=== PATIENT | male | born 1945 | race Caucasian/White ===

== ENCOUNTER 2017-12-08 09:17 | Emergency (ER) | payer OTHER, MEDICARE ==
--- NOTE | 2017-12-08 10:03 | ER Document Report ---
ED Medical Screen (RME) - General Chief Complaint: Puncture Wound to Foot Stated Complaint: FOOT PAIN Time Seen by Provider: 12/08/17 09:53 Mode of Arrival: Ambulatory Information source: Patient TRAVEL OUTSIDE OF THE [place] IN LAST 30 DAYS: No - HPI Patient complains to provider of: foot pain Onset: Other - pt. states he stepped on a nail (L foot) 1 month ago and had Tet. and was placed on Abx. Area getting morre red and painful despite neg. X- ray - Related Data Allergies/Adverse Reactions: No Known Allergies Allergy (Verified 12/08/17 09:18) Past Medical History - Social History Chew tobacco use (# tins/day): No Frequency of alcohol use: Rare Drug Abuse: None Renal/ Medical History: Denies: Hx Peritoneal Dialysis Physical Exam - Vital signs Vitals: Temp Pulse Resp BP Pulse Ox 97.4 F 58 L 18 140/61 H 98 12/08/17 09:28 12/08/17 09:28 12/08/17 09:28 12/08/17 09:28 12/08/17 09:28 Course - Vital Signs Vital signs: Temp Pulse Resp BP Pulse Ox 97.4 F 58 L 18 140/61 H 98 12/08/17 09:28 12/08/17 09:28 12/08/17 09:28 12/08/17 09:28 12/08/17 09:28
[2017-12-08 10:14] LABS: ABSOLUTE EOSINOPHILS # (AUTO) 0.1 10^3/uL (0.0-0.6); ABSOLUTE LYMPHOCYTES (AUTO) 2.9 10^3/uL (0.5-4.7); ABSOLUTE MONOCYTES (AUTO) 0.6 10^3/uL (0.1-1.4); BASOPHILS % (AUTO) 0.5 % (0-2); EOSINOPHILS % (AUTO) 0.9 % (0-6); HEMATOCRIT 42.4 % (37.9-51.0); HEMOGLOBIN 14.5 g/dL (13.5-17.0); LYMPHOCYTES % (AUTO) 34.1 % (13-45); MEAN CORPUSCULAR HEMOGLOBIN 31.3 pg (27.0-33.4); MEAN CORPUSCULAR HGB CONC 34.1 g/dL (32.0-36.0); MEAN CORPUSCULAR VOLUME 92 fl (80-97); MONOCYTES % (AUTO) 6.5 % (3-13); PLATELET COUNT 137 10^3/uL (150-450); RED BLOOD COUNT 4.61 10^6/uL (4.35-5.55); RED CELL DISTRIBUTION WIDTH 14.4 % (11.5-14.0); TOTAL CELLS COUNTED % (AUTO) 100 %; WHITE BLOOD COUNT 8.6 10^3/uL (4.0-10.5)
[2017-12-08 10:32] LABS: ALANINE AMINOTRANSFERASE 22 U/L (21-72); ALBUMIN 4.2 g/dL (3.5-5.0); ALKALINE PHOSPHATASE 101 U/L (38-126); ANION GAP 11 (5-19); ASPARTATE AMINO TRANSFERASE 23 U/L (17-59); BILIRUBIN,DIRECT 0.3 mg/dL (0.0-0.4); BILIRUBIN,TOTAL 0.7 mg/dL (0.2-1.3); BLOOD UREA NITROGEN 17 mg/dL (7-20); CALCIUM 9.5 mg/dL (8.4-10.2); CARBON DIOXIDE 32 mmol/L (22-30); CHLORIDE 103 mmol/L (98-107); GLUCOSE 104 mg/dL (75-110); POTASSIUM 4.4 mmol/L (3.6-5.0); SODIUM 145.7 mmol/L (137-145); TOTAL PROTEIN 7.2 g/dL (6.3-8.2)
[2017-12-08] MEDS ORDERED: LIDOCAINE 1% INJ-PF (10 MG/ML) 30 ML SDV INJ ONE (11:36)
--- NOTE | 2017-12-08 11:38 | ER Document Report ---
ED Extremity Problem, Lower - General Mode of Arrival: Ambulatory Information source: Patient TRAVEL OUTSIDE OF THE [place] IN LAST 30 DAYS: No <SERENITY HERNANDEZ - Last Filed: 12/08/17 16:25> <KENN NAYAK - Last Filed: 12/08/17 16:28> - General Chief Complaint: Puncture Wound to Foot Stated Complaint: FOOT PAIN Time Seen by Provider: 12/08/17 09:53 Notes: Patient is a 72-year-old male that presents to the emergency department today with complaints of a possible infection to his left foot. Patient states he stepped on a nail about a month ago. Patient states he was treated with Cipro by his doctor and he did not think anything of it after that. Patient states he was recently seen by his doctor again in follow-up and his doctor said that "it should not look like that". Patient states he noticed increasing redness and swelling about 1 week ago and [facility] which revealed no foreign body or fracture. Patient states he has been soaking his foot in epsom salt multiple times a day for the last few days. ( SERENITY HERNANDEZ) - Related Data Allergies/Adverse Reactions: No Known Allergies Allergy (Verified 12/08/17 09:18) Past Medical History - General Information source: Patient - Social History Smoking Status: Never Smoker Cigarette use (# per day): No Chew tobacco use (# tins/day): No Frequency of alcohol use: Rare Drug Abuse: None Lives with: Family Family History: Reviewed & Not Pertinent Patient has suicidal ideation: No Patient has homicidal ideation: No Renal/ Medical History: Denies: Hx Peritoneal Dialysis Surgical Hx: Negative <SERENITY HERNANDEZ - Last Filed: 12/08/17 16:25> Review of Systems - Review of Systems Constitutional: No symptoms reported EENT: No symptoms reported Cardiovascular: No symptoms reported Respiratory: No symptoms reported Gastrointestinal: No symptoms reported Genitourinary: No symptoms reported Male Genitourinary: No symptoms reported Musculoskeletal: No symptoms reported Skin: See HPI, Other - infection to left foot Hematologic/Lymphatic: No symptoms reported Neurological/Psychological: No symptoms reported -: Yes All other systems reviewed and negative <SERENITY HERNANDEZ - Last Filed: 12/08/17 16:25> Physical Exam <SERENITY HERNANDEZ - Last Filed: 12/08/17 16:25> <KENN NAYAK - Last Filed: 12/08/17 16:28> - Vital signs Vitals: Temp Pulse Resp BP Pulse Ox 97.4 F 58 L 18 140/61 H 98 12/08/17 09:28 12/08/17 09:28 12/08/17 09:28 12/08/17 09:28 12/08/17 09:28 - Notes Notes: PHYSICAL EXAM GENERAL: Alert, interacts well. No acute distress. HEAD: Normocephalic, atraumatic. EYES: Pupils equal, round, and reactive to light. Extraocular movements intact. ENT: Oral mucosa moist, tongue midline. NECK: Full range of motion. Supple. Trachea midline. LUNGS: No respiratory distress. HEART: Capillary refill less than 2 seconds distal to abscess. EXTREMITIES: Moves all 4 extremities spontaneously. Radial and dorsalis pedis pulses 2/4 bilaterally. No cyanosis. See skin exam. Full ROM of foot, able to flex and extend toes. Able to ambulate without difficulty. NEUROLOGICAL: Alert and oriented x3. Normal speech. Distal sensation intact. PSYCH: Normal affect, normal mood. SKIN: Warm and dry. Dorsal aspect of left foot at the base of the second and third toes there is an area that is swollen, tender to palpation, with erythema , warmth, fluctuance, and mild ecchymosis. Plantar aspect has minimal color change with a well-healed puncture wound. No tendon involvement. (SERENITY HERNANDEZ) Course - Laboratory Result Diagrams: 12/08/17 10:00 12/08/17 10:00 <SERENITY HERNANDEZ - Last Filed: 12/08/17 16:25> - Laboratory Result Diagrams: 12/08/17 10:00 12/08/17 10:00 <KENN NAYAK - Last Filed: 12/08/17 16:28> - Re-evaluation Re-evalutation: 12/08/17 12:48 CBC shows slight low platelets of 137 otherwise unremarkable, CMP unremarkable. X-ray report brought by the patient from outside facility on 12/06/2017 does not show any foreign body or acute osseous abnormality to include osteomyelitis or fracture. Area was cleaned, incised and drained, irrigated. Patient tolerated the procedure well. No evidence of damage to the tendons. Given the plantar puncture etiology for this wound and infection patient will have Cipro therapy restarted. He is also taking Augmentin for his dental infection and root canal. Patient is instructed to continue the Augmentin. No evidence of resistant staph at this time. Wound culture has been sent. (KENN NAYAK) - Vital Signs Vital signs: Temp Pulse Resp BP Pulse Ox 97.4 F 62 16 175/77 H 98 12/08/17 12:58 12/08/17 12:58 12/08/17 12:58 12/08/17 12:58 12/08/17 12:58 - Laboratory Laboratory results interpreted by me: 12/08/17 12/08/17 10:00 10:00 RDW 14.4 H Plt Count 137 L Sodium 145.7 H Carbon Dioxide 32 H Procedures - Incision and Drainage Left foot Type: Complex, Single Anesthetic type: 1% Lidocaine Blade size: 11 I&D procedure: Betadine prep applied, Chlorprep applied, Shurclens applied, Iodoform packing placed, Misty drain placed, Sterile dressing applied, Other Incision Method: Incision made by scalpel Amount/type of drainage: 2 mL purulent <KENN NAYAK - Last Filed: 12/08/17 16:28> - Incision and Drainage Left foot Notes: 12/08/17 16:28 Irrigated with sterile saline. (KENN NAYAK) Discharge <SERENITY HERNANDEZ - Last Filed: 12/08/17 16:25> <KENN NAYAK - Last Filed: 12/08/17 16:28> - Discharge Clinical Impression: Foot abscess, left Puncture wound of plantar aspect of left foot with infection Qualifiers: Encounter type: sequela Qualified Code(s): S91.332S - Puncture wound without foreign body, left foot, sequela Condition: Stable Disposition: HOME, SELF-CARE Additional Instructions: Abscess You have an abscess (boil). This a pus-forming infection, usually due to staph. Some boils may be left to drain on their own, but most require lancing. From the time the tender lump first appears, it may be three or four days before the abscess is ready to ant. Local heat and rest help at this stage of treatment. An antibiotic may prevent spread of the infection. The wound will heal with surprisingly little scar. Depending on the size and location of an abscess, healing can take one to four weeks. You may shower and wash the area around the incision site two or three times a day. Antibiotics may be prescribed, but are usually not necessary after an abscess has been drained. If you develop fever, chilling, worsening pain, or increasing swelling in the area, call the doctor or return immediately. Epsom Salt Soaks Soak the wound area in a container of warm epsom salt water. If you can't get the wound area into a bucket or matt, use a folded towel soaked in the epsom salt solution and apply to the area. Use clean hot tap water (about the temperature of a very warm bath), mixing in about one (1) teaspoon for every pint of water. Two gallon --> 16 teaspoons Epsom Salts One gallon --> 8 teaspoons Epsom Salts Two quarts --> 4 teaspoons Epsom Salts One quart --> 2 teaspoons Epsom Salts Soak the wound for about 20 minutes while gently moving it around in the water. Repeat this four (4) times a day. Prescriptions: Ciprofloxacin HCl [Cipro 750 mg Tablet] 750 mg PO BID #14 tablet Referrals: TERA MALONEY DPM [ACTIVE STAFF] - Follow up in 3-5 days KATE WINKLER MD [Primary Care Provider] - Follow up in 3-5 days Scribe Attestation: 12/08/17 16:28 I personally performed the services described in the documentation, reviewed and edited the documentation which was dictated to the scribe in my presence, and it accurately records my words and actions. (KENN NAYAK) Scribe Documentation - Scribe Written by Arturo:: Arturo Tan, 12/08/2017 [id number] acting as scribe for :: Chad <SERENITY HERNANDEZ - Last Filed: 12/08/17 16:25>
[2017-12-08] MEDS ORDERED: CIPROFLOXACIN HCL 750 MG TABLET PO ONE (12:46)
[2017-12-08 13:14] VITALS: BP 175/77
== END 2017-12-08 13:14 | disposition home or self-care (01) ==
LOC: ER 09:17
DX: L02.612 Cutaneous abscess of left foot (principal); S91.332S Puncture wound without foreign body, left foot, sequela; W45.0XXS Nail entering through skin, sequela; K04.7 Periapical abscess without sinus
CPT/HCPCS: 99283; 36415; 87040; 87070; 87205; 85025; 87075; 87077; 80053; 10061; J3490 ×2; 87186